=== PATIENT | female | born 1960 | race Caucasian/White ===

== ENCOUNTER 2018-02-27 17:32 | Emergency (ER) | payer BC, OTHER ==
[2018-02-27] MEDS ORDERED: THIAMINE HCL 100 MG/ML 2ML VIAL ONE (17:34)
[2018-02-27] MEDS ORDERED: 0.9 % SODIUM CHLORIDE 1,000 ML IV ONE ×2 (17:34→19:22)
[2018-02-27] MEDS ORDERED: FOLIC ACID 5 MG/1 ML ONE (17:34)
[2018-02-27] MEDS ORDERED: MULTIVIT INFUSN,ADULT 1,VIT K 10 ML VIAL IV ONE (17:34)
[2018-02-27] MEDS ORDERED: LORazepam 2 MG/ML VIAL ONE (17:35)
[2018-02-27] MEDS ORDERED: LORazepam 2 MG/ML VIAL IVP ONE (17:37)
[2018-02-27] MEDS: THIAMINE HCL 100 MG, MULTIVIT INFUSN,ADULT 1,VIT K 10 ML, FOLIC ACID 5 MG in 0.9 % SODI... IV SCH ×2 (17:40→20:11)
[2018-02-27 17:53] VITALS: BP 110/54
--- NOTE | 2018-02-27 17:53 | ED Physician Documentation ---
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 Pt presents to the ED via EMS c/o ETOH intoxication and decreased LOC. Pt comes from [facility] rehab facility for alcohol where she presented to be admitted today. Pt has a previous history of alcoholism drinking 1 pint per day. Pt was clean for 3-4 weeks after rehab then today she drank 2 fifths of whiskey since 10 am. Upon arrival pt is alert and responds to questions. Eupneic VSS. POC blood glucose 72. Pt takes seroquel, trazodone, and effexor for "Depression" pt last took home medications yesterday. Report to Dr Clark-agrees with plan Timing: still present Severity: moderate - ROS CONST: other (intoxicated). denies: fever, sweating EYES/ENT: none CVS/RESP: none. denies: chest pain, shortness of breath, cough GI/: none. denies: abdominal pain, problems urinating, vomiting, nausea, diarrhea MS/SKIN/LYMPH: none. denies: calf pain, neck pain, joint pain, leg swelling, swollen glands, leg pain, back pain NEURO/PSYCH: denies: headache, fainting, dizziness, tingling, numbness - PAST HX Past History: none Surgeries/Procedures: other (gastric bypass) Allergies/Adverse Reactions: Allergies Allergy/AdvReac Type Severity Reaction Status Date / Time cefaclor [From Ceclor] Allergy Verified 02/27/18 17:54 Home Medications: Ambulatory Orders Medication Instructions Recorded Estradiol 2 mg PO DAILY 02/27/18 Folic Acid 1 mg PO DAILY 02/27/18 Omeprazole 20 mg PO DAILY 02/27/18 Quetiapine Fumarate [Seroquel] 50 mg PO HS 02/27/18 Trazodone HCl [Desyrel] 100 mg PO HS PRN 02/27/18 Venlafaxine HCl [Effexor] 50 mg PO BID 02/27/18 - SOCIAL HX Smoking History: less than 1 pack/day Alcohol Use: heavy Drug Use: none - FAMILY HX Family History: No - REVIEWED ASSESSMENTS Nursing Assessment Reviewed: Yes Vitals Reviewed: Yes Progress - Results/Orders Results/Orders: 1800-lab Glucose 65 upon arrival. D50 ordered - Progress Progress: 2030- pt able to ambulate without difficulty. Pt able to eat and drink fluids without difficulty. a/o x 3 pwd eupneic. VSS. requesting discharge. blood glucose 107 upon discharge. - EKG/XRAY/CT EKG: NSR (Rate 75. QT interval mildly prolonged 440/468 no ectopy. interp by me), no ST T wave changes ED Results Lab/Radiology - Orders Orders: ED Orders Category Date Time Status Place IV Lock 1T Care 02/27/18 17:40 Active CBC PLATELETS NO DIFF Stat Lab 02/27/18 17:38 Ordered CMP Routine Lab 02/27/18 Ordered ETHANOL REF Stat Lab 02/27/18 Ordered UA [URINALYSIS] Routine Lab 02/27/18 Ordered Urine drug screen [DRUG SCREEN URINE MEDICAL ONLY] Lab 02/27/18 Ordered Routine 0.9 % Sodium Chloride [Normal Saline] 1,000 ml Med 02/27/18 17:34 Discontinued IV .STK-MED Chem Sticks Med 02/27/18 17:44 Ordered 1 each CHEMQ PRN Folic Acid [Folvite] Med 02/27/18 17:34 Discontinued 5 mg .ROUTE .STK-MED ONE LORazepam [Ativan] Med 02/27/18 17:37 Discontinued 0.5 mg IVP NOW ONE LORazepam [Ativan] Med 02/27/18 17:35 Discontinued 2 mg .ROUTE .STK-MED ONE Multivit Infusn,Adult 1,Vit K [M.v.i. Adult] Med 02/27/18 17:34 Discontinued 10 ml IV .STK-MED ONE Thiamine HCl Med 02/27/18 17:34 Discontinued 200 mg .ROUTE .STK-MED ONE Thiamine HCl 100 mg Med 02/27/18 18:00 Ordered Multivit Infusn,Adult 1,Vit K [M.v.i. Adult] 10 ml Folic Acid [Folvite] 5 mg 0.9 % Sodium Chloride [Normal Saline] 1,000 ml IV 1T EKG WITH COMPARISON Stat Ther 02/27/18 Ordered General Adult Physical Exam - PHYSICAL EXAM GENERAL APPEARANCE: mild distress EENT: eye inspection normal, pharynx normal, no signs of dehydration NECK: normal inspection, supple. No: lymphadenopathy RESPIRATORY: no resp distress, breath sounds normal. No: wheezes, rales, rhonchi CVS: reg rate & rhythm, heart sounds normal, equal pulses, no murmur, no gallop, no JVD ABDOMEN: soft, no organomegaly, normal bowel sounds BACK: normal inspection SKIN: warm/dry EXTREMITIES: non-tender, normal range of motion, no evidence of injury, no edema NEURO: disoriented, other (GCS 14 oriented to person only. aware to situation. slurred speech. no tremors) Discharge Clincal Impression: ETOH abuse Referrals: Primary Doctor,No [Primary Care Provider] - 2 Days Additional Instructions: Discharge to [facility] with their staff. Return if worse: chest pain, shortness of breath, fever, change in mental status, or any concern. Stop drinking or you will or become disabled. Follow up with primary care next week or before if needed. Comments: Consulted with Dr Clark. he agrees with plan for discharge to [facility] facility Condition: Good Disposition: 01 HOME, SELF-CARE Decision to Admit: NO Date of Decison to Admit: 02/27/18 Decision Time: 20:46
[2018-02-27 18:18] LABS: eGFR (Non-African) > 60
[2018-02-27] MEDS ORDERED: DEXTROSE 50% 50 ML DISP.SYRIN IVP ONE (18:22)
[2018-02-27] MEDS ORDERED: DEXTROSE 50% 50 ML DISP.SYRIN IVP STA (18:23)
[2018-02-27] MEDS ORDERED: NORMAL SALINE 500 ML IV.SOLN IV STA (19:35)
[2018-02-27 20:01] LABS: EOS % 0.8 % (0.0-6.8); LYMPH ABS # 1.79 thou/uL (0.60-4.00); MCV 82.6 fL (80.0-100.0); MONOCYTE % 3.7 % (0.0-11.0); MONOCYTE ABS # 0.39 thou/uL (0.00-0.90); PLATELET COUNT 412 thou/uL (130-400)
[2018-02-27] MEDS ORDERED: MAGNESIUM OXIDE 400 MG TABLET PO ONE (20:11)
[2018-02-28 08:41] LABS: CANNABINOIDS NEGATIVE ng/mL (< 50); METHYLENEDIOXYMETHAMPHETAMINE NEGATIVE ng/mL (<500)
== END 2018-02-27 21:00 | disposition home or self-care (01) ==
LOC: ED 17:32
DX: F10.129 Alcohol abuse with intoxication, unspecified (principal)
CPT/HCPCS: 80053; 80320; 80377; 81002; 83735; 85025; 93005; J2060; J3411; J3490; J7030; 96365; 96367; 96375; G0480; G0481; S1016